=== PATIENT | female | born 1945 | race Caucasian/White ===

== ENCOUNTER 2016-12-06 12:18 | Emergency (ER) | payer OTHER ==
[2016-12-06 12:22] VITALS: BP 116/72; PULSE 64; TEMP 98.3; BMI 30.2
[2016-12-06] MEDS ORDERED: IBUPROFEN 600 MG TABLET (FP) PO ONE ×2 (13:37→13:40)
--- NOTE | 2016-12-06 15:00 | PDOC ---
History of Present Illness - General Chief Complaint: Injury Stated Complaint: FALL/ LEG INJIURY Time Seen by Provider: 12/06/16 13:27 History Source: Patient Exam Limitations: No Limitations - History of Present Illness Initial Comments: 12/06/16 14:52 BIB son who is translating; mom was standing on cabinet today fell as stepped on step ladder and fell ~ 2 ft Occurred: reports: this morning Severity: reports: mild Pain Location: reports: lower extremity Method of Injury: Yes: fall Past History - Past Medical History Allergies/Adverse Reactions: Allergies Allergy/AdvReac Type Severity Reaction Status Date / Time No Known Allergies Allergy Verified 12/06/16 12:20 Home Medications: Ambulatory Orders Unobtainable Home Med List 0 dose .ROUTE UTDICT 11/21/13 Diabetes: Yes HTN: Yes - Surgical History Abdominal Surgery: Yes Cholecystectomy: Yes - Psycho/Social/Smoking Cessation Hx Anxiety: No Suicidal Ideation: No Smoking History: Never smoked Hx Alcohol Use: No Drug/Substance Use Hx: No Substance Use Type: None Review of Systems - Review of Systems Constitutional: No: Chills, Fever, Malaise Respiratory: No: Symptoms reported, Cough Cardiac (ROS): Yes: Symptoms Reported Musculoskeletal: Yes: Other (tender mid shaft tib-fib; also tender dital MTs right foot;) Integumentary: Yes: Other (no skin break) *Physical Exam - Vital Signs Last Vital Signs Temp Pulse Resp BP Pulse Ox 98.3 F 64 18 116/72 98 12/06/16 12:19 12/06/16 12:19 12/06/16 12:19 12/06/16 12:19 12/06/16 12:19 - Physical Exam General Appearance: Yes: Appropriately Dressed. No: Apparent Distress HEENT: positive: Pharynx Normal Respiratory/Chest: positive: Lungs Clear Musculoskeletal: positive: Other (tender mid shaft tibia, fibula; no tenderness to ankle; tender to area of distal MTs 2-5) Integumentary: positive: Normal Color, Dry, Warm, Other (skin intact) Neurologic: positive: Fully Oriented, Alert ED Treatment Course - RADIOLOGY Radiology Studies Ordered: Category Date Time Status ANKLE & FOOT-RIGHT* [RAD] Stat Radiology 12/06/16 13:38 Completed LEG TIB/FIB-RIGHT [RAD] Stat Radiology 04/29/17 14:02 Completed - Medications Given in the ED: ED Medications Discontinued Medications Generic Name Dose Route Start Last Admin Trade Name Diana PRN Reason Stop Dose Admin Ibuprofen 600 mg 12/06/16 13:37 12/06/16 13:43 Motrin - PO 12/06/16 13:38 600 mg ONCE ONE Administration Medical Decision Making - Medical Decision Making 12/06/16 14:57 spoke with TRACEY Dorado covering [facility]/ [place] service, suggests non weight bearing splint and pt will need surgery by podiatry next week; pt good on non weight bearing with crutches; has own podiatry; anand dressing appied *DC/Admit/Observation/Transfer Diagnosis at time of Disposition: Fracture of right foot Qualifiers: Encounter type: initial encounter Fracture type: closed Qualified Code(s): S92.901A - Unspecified fracture of right foot, initial encounter for closed fracture - Discharge Dispostion Disposition: HOME Condition at time of disposition: Stable Admit: No - Referrals Referrals: Malu Hobbs MD [Primary Care Provider] - Darrick Hilario MD [Staff Physician] - - Patient Instructions Additional Instructions: please no weight bearing; ice area; elevate foot; see foot MD on Thursday, you may need surgery this week
== END 2016-12-06 15:05 | disposition home or self-care (01) ==
LOC: SUPCPDRO 12:18 → JERFT 12:18
PROC: 2W3LX1Z Immobilization of Right Lower Extremity using Splint (ICD-10-PCS; principal; 2016-12-06)
DX: S92.901A Unspecified fracture of right foot, initial encounter for closed fracture (principal); W11.XXXA Fall on and from ladder, initial encounter; W17.89XA Other fall from one level to another, initial encounter; Y93.89 Activity, other specified; Y92.038 Other place in apartment as the place of occurrence of the external cause; I10 Essential (primary) hypertension; E11.9 Type 2 diabetes mellitus without complications
CPT/HCPCS: 29515; 73590-TC-RT; 73610-TC-RT; 73630-TC-RT; 99282-25

== ENCOUNTER 2019-09-23 05:07 | Day surgery (SDC) | payer OTHER ==
[2019-09-22 15:34] VITALS: BMI 27.4
[2019-09-23] MEDS ORDERED: PROPOFOL 20 ML ONE ×2 (08:42→11:23)
[2019-09-23] MEDS ORDERED: LIDOCAINE HCL/PF 2% SDV 5ML VIAL ONE ×2 (08:42→11:23)
[2019-09-23] MEDS ORDERED: MIDAZOLAM HCL 2 MG/2 ML SINGLE DOSE VIAL ONE (08:42)
[2019-09-23] MEDS ORDERED: DEXAMETHASONE SOD PHOSPHATE 4 MG/1 ML VIAL ONE (11:23)
[2019-09-23] MEDS ORDERED: ISOSULFAN BLUE 10 MG/ML VIAL SQ ONE (11:30)
[2019-09-23] MEDS ORDERED: LIDOCAINE HCL 1%, 10 MG/ML (20ML VIAL) ONE (11:30)
[2019-09-23] MEDS ORDERED: ceFAZolin 2 GRAM PREMIX BAG IVPB ONE (12:16)
[2019-09-23] MEDS ORDERED: KETOROLAC TROMETHAMINE 30 MG/1 ML VIAL ONE (12:18)
[2019-09-23] MEDS ORDERED: LIDOCAINE HCL 1%, 10 MG/ML (20ML VIAL) NR ONE ×2 (12:28)
[2019-09-23] MEDS ORDERED: EPHEDRINE SULFATE/0.9% NACL/PF 50 MG/10 ML SYRINGE NR ONE (12:40)
[2019-09-23] MEDS ORDERED: BACITRACIN 15 GM TUBE TOPICAL OINTMENT ONE (13:32)
--- NOTE | 2019-09-23 15:29 | OP ---
DATE OF OPERATION: 09/23/2019 PREOPERATIVE DIAGNOSIS: Left breast cancer. POSTOPERATIVE DIAGNOSIS: Left breast cancer. PROCEDURE: Left breast ultrasound-guided lumpectomy and sentinel node biopsy. SURGEON: Marian Mariano MD ANESTHESIA: General. ESTIMATED BLOOD LOSS: Minimal. COMPLICATIONS: None. This was a sterile procedure. INDICATION FOR PROCEDURE: Patient presented with a screening mammogram and ultrasound that noted a density in the outer left breast. A needle biopsy showed invasive carcinoma. My recommendation was lumpectomy and sentinel node biopsy. The procedure was discussed with all of the questions answered. PROCEDURE IN DETAIL: Patient was brought to [facility] in [place] and [facility] nuclear medicine where I injected technetium labelled sulfur colloid as an intradermal injection in the left 3 o'clock areolar border. She was then brought up to the operating room, and after induction of general anesthesia and IV antibiotics, the left breast and axilla were prepped; 5 mL of Isosulfan Blue dye was injected by me into the left subaerolar plexus, and the breast was massaged for 5 minutes. She was induced with general anesthesia and intraoperative ultrasound performed to localize the lesion in the left breast 3 o'clock location 3 cm from the nipple. Then using usual sterile technique, the outer left breast and the axillary area were anesthetized with 1% lidocaine without epinephrine. The 4-cm incision was made in the left axilla, carried down to the clavipectoral fascia to identify a 1st sentinel node that was hot and blue. There was another lymph node as well that was hot but not blue. There was no other blue dye radioactivity or pathologic feeling lymph nodes in the left axilla; therefore, once hemostasis was assured, the left lumpectomy was performed. A radial incision was made in the left breast 3:30-4 o'clock location, and the area marked out by the ultrasound was excised en bloc, tagged with a long stitch lateral, short stitch superior. Grossly, I felt I was close posteriorly; therefore, I took a new posterior margin with a stitch at the old margin. The lumpectomy was sent for a permanent section as a left breast lumpectomy, long stitch lateral, short stitch superior, and the new posterior margin was also sent for permanent section in formalin to Pathology with stitch marking the old margin. Hemostasis was assured with electrocautery. The parenchyma was approximated with interrupted 2-0 Vicryl, skin approximated with interrupted 3-0 Vicryl, running 4 -0 Prolene. The axillary incision was also closed in a routine fashion with interrupted 3-0 Vicryl, running 4-0 Prolene. A sterile dressing with Tegaderm and 4 x 4 was applied. She tolerated procedure well, was extubated on the operating room table, taken to recovery in good condition. Kenny [id number] MTDD
[2019-09-23 16:16] VITALS: BP 136/80; PULSE 100; TEMP 95
--- NOTE | 2019-09-28 16:15 | PATH ---
Surgical Pathology Report Patient Name: YAJAIRA RIDLEY [facility]. Rec. #: [id number] /Age/Gender: 1945 (Age: 73) / F Account: [id number] Location: [facility] SURGICAL Taken: 09/23/2019 Received: 09/26/2019 Reported: 09/28/2019 Physicians: Marian Mariano M.D. Specimen(s) Received A: LEFT AXILLARY SENTINEL LYMPH NODE #1 (HOT AND BLUE) B: LEFT AXILLARY SENTINEL LYMPH NODE #2 (HOT NOT BLUE) C: LEFT LUMPECTOMY D: LEFT BREAST NEW POSTERIOR MARGIN Clinical History Left breast cancer Final Diagnosis A. lymph node, left axillary sentinel #1, excision: One lymph node, negative for metastatic carcinoma (0/1). B. lymph node, left axillary sentinel #2, excision: One lymph node, negative for metastatic carcinoma (0/1). C. breast, left, lumpectomy: Invasive ductal carcinoma, moderately differentiated (tubule score: 3/3, nuclear grade: 2/3, mitotic score: 2/3, total score: 7/9; [place], grade 2). See note. Invasive carcinoma measures 1.2 cm in greatest dimension, microscopically. Focal ductal carcinoma in situ (DCIS), Cribriform type, intermediate nuclear grade. Surgical margins are uninvolved by carcinoma; invasive carcinoma is at 3 mm from the closest posterior margin and DCIS is at 2 mm from the closest posterior margin. (see specimen D for final posterior margin). No lymphovascular invasion is identified. Pathologic stage (pTNM): pT1c pN0. see also invasive carcinoma case Summary below. Note: The carcinoma demonstrates strong membranous positivity for E-cadherin and p120 catenin (performed at [place], [place]: [id number]) which supports ductal phenotype. D. breast, left, new posterior margin, excision: Benign breast tissue. Comments Breast Invasive Carcinoma: Surgical Pathology Case Summary (Based on AJCC TNM 8 th edition) Procedure _X_ Excision (less than total mastectomy) Specimen Laterality _X_ Left Tumor Size _X_ Greatest dimension of largest invasive focus >1 mm (millimeters): 12 mm Histologic Type _X_ Invasive carcinoma of no special type (ductal, not otherwise specified) Histologic Grade (Geovanna Histologic Score) Glandular (Acinar)/Tubular Differentiation _X_ Score 3 (<10% of tumor area forming glandular/tubular structures) Nuclear Pleomorphism _X_ Score 2 Mitotic Rate _X_ Score 2 Overall Grade _X_ Grade 2 (scores of 6 or 7) Tumor Focality _X_ Single focus of invasive carcinoma Ductal Carcinoma In Situ (DCIS) _X_ DCIS is present in specimen _X_ Negative for extensive intraductal component (EIC) Margins Invasive Carcinoma Margins _X_ Uninvolved by invasive carcinoma Distance from closest margin (millimeters): 3 mm Closest margin: posterior (Final posterior margin D is negative for carcinoma) DCIS Margins _X_ Uninvolved by DCIS Distance from closest margin (millimeters): 2 mm Closest margin: posterior (Final posterior margin D is negative for DCIS) Regional Lymph Nodes _X_ Uninvolved by tumor cells Number of Lymph Nodes Examined: 2 Number of [place] Nodes Examined:2 Treatment Effect _X_ No known presurgical therapy Lymphovascular Invasion _X_ Not identified Pathologic Stage Classification (pTNM, AJCC 8th Edition) Primary Tumor (Invasive Carcinoma) (pT) _X_ pT1c: Tumor >10 mm but =20 mm in greatest dimension Category (pN) _X_ pN0: No regional lymph node metastasis identified or ITCs only Biomarker Studies Results of ER, KS, Her2 (IHC) & Ki-67 studies performed on this specimen (block C1) at [place], [place] ([id number] ) are as follows: ER (clone [id number] mouse monoclonal antibody by [employer]): 100 % nuclear staining with strong intensity (positive). KS (clone16 mouse monoclonal antibody by [employer]): ~25 % nuclear staining with moderate to strong intensity (positive). Her2 IHC (EP3 from [employer], formerly known as [id number], using Santiago Polymer Refine detection kit): 2+ (Equivocal). Ki67: ~20% (Intermediate proliferative index). Results of Her2 FISH studies will be reported separately in an addendum. Positive and negative controls (internal if applicable) show appropriate results. Formalin fixation time is within current ASCO/CAP recommendations for ER, KS and Her2 testing. Time to formalin fixation (cold ischemic time) is not given. Electronically Signed Miryam Zelaya M.D. Amendments Amended: 09/28/2019 Previous Signout Date: 09/28/2019 Addendum Reported: 10/05/2019 Addendum Diagnosis Results of Her2 FISH studies performed on block "C1 " at [place], [place] ([id number]) are as follows: Her2: 17.0 CEP17:1.6 Ratio:10.6 Interpretation: POSITIVE See [facility] report for additional details. Miryam Zelaya M.D. Gross Description A. Received in formalin labeled "left axillary sentinel lymph node #1," is a 1.3 x 0.7 x 0.4 cm lymph node with attached fat. The specimen is bisected and entirely submitted in one cassette. B. Received in formalin labeled "left axillary sentinel lymph node #2," is a 1.5 x 0.8 x 0.3 cm lymph node with attached fat. The specimen is submitted in toto in one cassette. C. Received in formalin, labeled "left lumpectomy," is a 6.3 x 5.9 x 3.2 cm. barber-yellow, irregular, portion of fibroadipose tissue. There is no needle localization wire present. There is a short suture marking the superior aspect and a long suture marking the lateral aspect, per the surgeon. There is no skin present. The specimen is inked as follows: superior and lateral blue; inferior green; medial yellow; anterior red; posterior black. The specimen is serially sectioned from medial to lateral. Sectioning reveals a 1.0 x 0.9 x 0.8 cm barber, indurated mass at 0.2 cm from the posterior margin and 0.9 cm from the inferior margin. The remaining margins appear widely clear of the mass. Pipe Cleaner sections are submitted in 6 cassettes as follows: 1-full-face section of mass with anterior and posterior margins; 2-additional mass with posterior and inferior margins; 3-additional mass with posterior margin; 4-superior margin; 5-medial margin; 6-lateral margin. Time to formalin fixation: Not given Total formalin fixation time: Approximately 72 hours D. Received in formalin labeled "left breast new posterior margin," is a 5.0 x 3.8 x 1.5 cm portion of fibroadipose tissue with a suture marking the old margin, per the surgeon. The new margin is inked black and the specimen is serially sectioned. The specimen is entirely and sequentially submitted in 9 cassettes. DL09/26/2019 saudi09/26/2019
== END 2019-09-23 16:17 | disposition home or self-care (01) ==
LOC: JASU-SURG 05:07
PROVIDERS: ATTEND Surgery
PROC: 0HBU0ZZ Excision of Left Breast, Open Approach (ICD-10-PCS; principal; 2019-09-23 11:00)
DX: C50.912 Malignant neoplasm of unspecified site of left female breast (principal); E11.9 Type 2 diabetes mellitus without complications; I10 Essential (primary) hypertension
CPT/HCPCS: 78195-TC; 82962; 88307-TC; 94760; A9541

== ENCOUNTER 2019-10-19 08:58 | Day surgery (SDC) | payer OTHER ==
[2019-10-18 12:39] VITALS: BMI 28.7
[2019-10-19 09:53] LABS: INR 0.96 (0.83-1.09); PROTHROMBIN TIME (PATIENT) 11.3 SEC (9.7-13.0)
[2019-10-19 10:14] LABS: BASO % 0.6 % (0-2.0); EOS % 3.1 % (0-4.5); HEMATOCRIT 33.7 % (32.4-45.2); HEMOGLOBIN 11.3 GM/dL (10.7-15.3); LYMPH % 19.5 % (8-40); MCH 29.4 pg (25.7-33.7); MCHC 33.5 g/dl (32.0-36.0); MEAN CELL VOLUME 87.8 fl (80-96); MONO % 9.6 % (3.8-10.2); NEUT % 67.2 % (42.8-82.8); PLATELET COUNT 269 K/MM3 (134-434); RBC 3.84 M/mm3 (3.60-5.2); WHITE BLOOD COUNT 7.9 K/mm3 (4.0-10.0)
[2019-10-19 14:49] VITALS: BP 129/64; PULSE 86; TEMP 97.5
== END 2019-10-19 14:40 | disposition home or self-care (01) ==
LOC: JRADIR 08:58
PROVIDERS: ATTEND Internal Medicine Hematology & Oncology
PROC: 02HV33Z Insertion of Infusion Device into Superior Vena Cava, Percutaneous Approach (ICD-10-PCS; principal; 2019-10-19)
PROC: B518ZZA Fluoroscopy of Superior Vena Cava, Guidance (ICD-10-PCS; 2019-10-19)
DX: C50.912 Malignant neoplasm of unspecified site of left female breast (principal)
CPT/HCPCS: 36561; 77001; C1788; 36415; 82962; 85025; 85610

== ENCOUNTER 2019-10-21 05:53 | Day surgery (SDC) | payer OTHER ==
[2019-10-21 13:00] LABS: BASO % 0.5 % (0-2.0); EOS % 2.6 % (0-4.5); HEMATOCRIT 33.7 % (32.4-45.2); HEMOGLOBIN 11.2 GM/dL (10.7-15.3); LYMPH % 17.6 % (8-40); MCH 29.5 pg (25.7-33.7); MCHC 33.2 g/dl (32.0-36.0); MEAN CELL VOLUME 88.9 fl (80-96); MEAN PLT VOLUME 8.2 fl (7.5-11.1); MONO % 7.3 % (3.8-10.2); PLATELET COUNT 254 K/MM3 (134-434); RBC 3.79 M/mm3 (3.60-5.2); RDW 14.3 % (11.6-15.6); WHITE BLOOD COUNT 9.5 K/mm3 (4.0-10.0)
[2019-10-21] MEDS ORDERED: FAMOTIDINE 20 MG/50 ML IVPB 20 MG/50 ML MG IVPB ONE (13:00)
[2019-10-21] MEDS ORDERED: ACETAMINOPHEN 325 MG TABLET (FP) PO ONE (13:00)
[2019-10-21] MEDS ORDERED: DEXAMETHASONE INJECTION 10 MG, DIPHENHYDRAMINE 50 MG in SODIUM CHLORIDE 100 ML IVPB ONE (13:00)
[2019-10-21 13:26] LABS: BILIRUBIN,TOTAL 0.3 mg/dL (0.2-1); CALCIUM 9.5 mg/dL (8.5-10.1); MAGNESIUM 2.2 mg/dL (1.8-2.4); POTASSIUM 4.1 mmol/L (3.5-5.1); TOT PROT 7.3 g/dl (6.4-8.2)
[2019-10-21] MEDS ORDERED: PACLITAXEL 144 MG in SODIUM CHLORIDE 250 ML IVPB ONE (13:30)
[2019-10-21] MEDS ORDERED: SODIUM CHLORIDE IVPB ONE (14:30)
[2019-10-21] MEDS ORDERED: TRASTUZUMAB ANNS IVPB ONE (14:30)
[2019-10-21 18:12] VITALS: BP 139/63; PULSE 82; TEMP 98.3
[2019-10-21] MEDS ORDERED: PORTA CATH FLUSH 10 ML IVPUSH ONE (18:12)
== END 2019-10-21 17:25 | disposition home or self-care (01) ==
LOC: JONCCHEMO 05:53 → J7W 12:30 → JONCCHEMO 17:25
PROVIDERS: ATTEND Internal Medicine Hematology & Oncology
DX: Z51.11 Encounter for antineoplastic chemotherapy (principal); C50.912 Malignant neoplasm of unspecified site of left female breast
CPT/HCPCS: 36415; 80053; 83735; 85025; 96367; 96413; 96417; J1100; Q5117

== ENCOUNTER 2019-10-28 06:27 | Day surgery (SDC) | payer OTHER ==
[2019-10-28] MEDS ORDERED: FAMOTIDINE 20 MG/50 ML IVPB 20 MG/50 ML MG IVPB ONE (09:30)
[2019-10-28] MEDS ORDERED: DEXAMETHASONE SODIUM PHOSPHATE 10 MG, DIPHENHYDRAMINE 50 MG in SODIUM CHLORIDE 100 ML IVPB ONE (09:30)
[2019-10-28] MEDS ORDERED: ACETAMINOPHEN 325 MG TABLET (FP) PO ONE (09:30)
[2019-10-28] MEDS ORDERED: SODIUM CHLORIDE IVPB ONE (10:00)
[2019-10-28] MEDS ORDERED: TRASTUZUMAB ANNS IVPB ONE (10:00)
[2019-10-28] MEDS ORDERED: PACLITAXEL 144 MG in SODIUM CHLORIDE 250 ML IVPB ONE (10:30)
[2019-10-28] MEDS ORDERED: HYDROCORTISONE 1% TOPICAL CREAM 30 GM TUBE TP PRN (13:23)
[2019-10-28 13:58] LABS: BASO % 0.9 % (0-2.0); EOS % 6.6 % (0-4.5); HEMATOCRIT 31.7 % (32.4-45.2); HEMOGLOBIN 10.8 GM/dL (10.7-15.3); LYMPH % 19.4 % (8-40); MCH 29.6 pg (25.7-33.7); MEAN PLT VOLUME 8.2 fl (7.5-11.1); MONO % 5.2 % (3.8-10.2); NEUT % 67.9 % (42.8-82.8); PLATELET COUNT 299 K/MM3 (134-434); RBC 3.64 M/mm3 (3.60-5.2); RDW 13.6 % (11.6-15.6); WHITE BLOOD COUNT 7.1 K/mm3 (4.0-10.0)
[2019-10-28 14:25] LABS: ALBUMIN 3.8 g/dl (3.4-5.0); BILIRUBIN,TOTAL 0.5 mg/dL (0.2-1); BLOOD UREA NITROGEN 15.9 mg/dL (7-18); CALCIUM 9.7 mg/dL (8.5-10.1); CREATININE 0.9 mg/dL (0.55-1.3); POTASSIUM 3.9 mmol/L (3.5-5.1); TOT PROT 7.2 g/dl (6.4-8.2)
[2019-10-28] MEDS ORDERED: ACETAMINOPHEN 325 MG TABLET (FP) ONE (14:33)
[2019-10-28 17:27] VITALS: BP 130/62; PULSE 73; TEMP 97.7
[2019-10-28] MEDS ORDERED: PORTA CATH FLUSH 10 ML IVPUSH ONE (17:27)
== END 2019-10-28 17:29 | disposition home or self-care (01) ==
LOC: JONCCHEMO 06:27 → J7W 13:40 → JONCCHEMO 17:29
PROVIDERS: ATTEND Nurse Practitioner Family
DX: Z51.11 Encounter for antineoplastic chemotherapy (principal); C50.912 Malignant neoplasm of unspecified site of left female breast
CPT/HCPCS: 36415; 80053; 85025; 96367; 96375; 96413; 96417; Q5117

== ENCOUNTER 2020-02-02 06:28 | Day surgery (SDC) | payer OTHER ==
[2020-02-02] MEDS ORDERED: ACETAMINOPHEN 325 MG TABLET (FP) PO ONE (10:00)
[2020-02-02] MEDS ORDERED: DIPHENHYDRAMINE 25 MG in SODIUM CHLORIDE 50 ML IVPB ONE (10:00)
[2020-02-02] MEDS ORDERED: TRASTUZUMAB-ANNS 440 MG in SODIUM CHLORIDE 250 ML IVPB ONE (10:30)
[2020-02-02 12:06] LABS: BASO % 0.7 % (0-2.0); EOS % 1.3 % (0-4.5); HEMATOCRIT 32.2 % (32.4-45.2); HEMOGLOBIN 10.8 GM/dL (10.7-15.3); LYMPH % 14.4 % (8-40); MCH 31.7 pg (25.7-33.7); MCHC 33.7 g/dl (32.0-36.0); MEAN CELL VOLUME 94.1 fl (80-96); MEAN PLT VOLUME 8.3 fl (7.5-11.1); MONO % 7.5 % (3.8-10.2); NEUT % 76.1 % (42.8-82.8); PLATELET COUNT 286 K/MM3 (134-434); RBC 3.43 M/mm3 (3.60-5.2); RDW 17.3 % (11.6-15.6); WHITE BLOOD COUNT 9.1 K/mm3 (4.0-10.0)
[2020-02-02 12:13] LABS: ALBUMIN 4.1 g/dl (3.4-5.0); BILIRUBIN,TOTAL 0.7 mg/dL (0.2-1); BLOOD UREA NITROGEN 16.5 mg/dL (7-18); CALCIUM 10.1 mg/dL (8.5-10.1); POTASSIUM 3.5 mmol/L (3.5-5.1)
[2020-02-02 12:20] LABS: CREATININE 0.9 mg/dL (0.55-1.3)
[2020-02-02 15:13] VITALS: TEMP 98.7
[2020-02-02 15:16] VITALS: BP 139/73; PULSE 89
== END 2020-02-02 14:10 | disposition home or self-care (01) ==
LOC: JONCCHEMO 06:28
PROVIDERS: ATTEND Internal Medicine Hematology & Oncology
DX: Z51.11 Encounter for antineoplastic chemotherapy (principal); C50.912 Malignant neoplasm of unspecified site of left female breast; D64.81 Anemia due to antineoplastic chemotherapy
CPT/HCPCS: 36415; 80053; 85025; 96375; 96413

== ENCOUNTER 2020-02-24 07:15 | Day surgery (SDC) | payer OTHER ==
[2020-02-24] MEDS ORDERED: DIPHENHYDRAMINE 25 MG in SODIUM CHLORIDE 50 ML IVPB ONE (10:00)
[2020-02-24] MEDS ORDERED: ACETAMINOPHEN 325 MG TABLET (FP) PO ONE (10:00)
[2020-02-24] MEDS ORDERED: TRASTUZUMAB-ANNS 440 MG in SODIUM CHLORIDE 250 ML IVPB ONE (10:30)
[2020-02-24 11:03] LABS: BASO % 0.5 % (0-2.0); EOS % 1.1 % (0-4.5); HEMATOCRIT 34.9 % (32.4-45.2); HEMOGLOBIN 11.9 GM/dL (10.7-15.3); MCH 31.3 pg (25.7-33.7); MEAN CELL VOLUME 92.1 fl (80-96); MEAN PLT VOLUME 7.3 fl (7.5-11.1); MONO % 6.6 % (3.8-10.2); NEUT % 79.8 % (42.8-82.8); PLATELET COUNT 289 K/MM3 (134-434); RBC 3.79 M/mm3 (3.60-5.2); RDW 14.5 % (11.6-15.6); WHITE BLOOD COUNT 10.7 K/mm3 (4.0-10.0)
[2020-02-24 11:32] LABS: ALBUMIN 4.2 g/dl (3.4-5.0); BILIRUBIN,TOTAL 0.7 mg/dL (0.2-1); BLOOD UREA NITROGEN 15.1 mg/dL (7-18); CALCIUM 10.3 mg/dL (8.5-10.1); POTASSIUM 3.7 mmol/L (3.5-5.1); TOT PROT 7.6 g/dl (6.4-8.2)
[2020-02-24 14:46] VITALS: TEMP 98.2
[2020-02-24 14:48] VITALS: BP 126/72; PULSE 67
== END 2020-02-24 13:15 | disposition home or self-care (01) ==
LOC: JONCCHEMO 07:15
PROVIDERS: ATTEND Internal Medicine Hematology & Oncology
DX: Z51.11 Encounter for antineoplastic chemotherapy (principal); C50.912 Malignant neoplasm of unspecified site of left female breast; D64.81 Anemia due to antineoplastic chemotherapy
CPT/HCPCS: 36415; 80053; 82728; 83540; 83550; 85025; 96375; 96413; Q5117

== ENCOUNTER 2020-03-16 07:21 | Day surgery (SDC) | payer OTHER ==
[2020-03-16] MEDS ORDERED: DIPHENHYDRAMINE 25 MG in SODIUM CHLORIDE 50 ML IVPB ONE (10:00)
[2020-03-16] MEDS ORDERED: ACETAMINOPHEN 325 MG TABLET (FP) PO ONE (10:00)
[2020-03-16] MEDS ORDERED: TRASTUZUMAB-ANNS 440 MG in SODIUM CHLORIDE 250 ML IVPB ONE (10:30)
[2020-03-16 12:56] LABS: BASO % 0.6 % (0-2.0); EOS % 1.5 % (0-4.5); HEMATOCRIT 35.7 % (32.4-45.2); LYMPH % 10.5 % (8-40); MCHC 33.6 g/dl (32.0-36.0); MEAN CELL VOLUME 92.1 fl (80-96); MEAN PLT VOLUME 7.3 fl (7.5-11.1); MONO % 5.5 % (3.8-10.2); NEUT % 81.9 % (42.8-82.8); PLATELET COUNT 285 K/MM3 (134-434); RBC 3.87 M/mm3 (3.60-5.2); RDW 13.4 % (11.6-15.6); WHITE BLOOD COUNT 10.3 K/mm3 (4.0-10.0)
[2020-03-16 13:24] LABS: ALBUMIN 4.1 g/dl (3.4-5.0); BILIRUBIN,TOTAL 0.4 mg/dL (0.2-1); BLOOD UREA NITROGEN 12.2 mg/dL (7-18); CALCIUM 10.3 mg/dL (8.5-10.1); CREATININE 0.9 mg/dL (0.55-1.3); POTASSIUM 4.1 mmol/L (3.5-5.1); TOT PROT 7.2 g/dl (6.4-8.2)
[2020-03-16 14:26] VITALS: TEMP 98.3
[2020-03-16 15:41] VITALS: BP 146/69; PULSE 69
[2020-03-16] MEDS ORDERED: PORTA CATH FLUSH 10 ML IVPUSH ONE (15:41)
== END 2020-03-16 15:00 | disposition home or self-care (01) ==
LOC: JONCCHEMO 07:21
PROVIDERS: ATTEND Internal Medicine Hematology & Oncology
PROC: 3E04305 Introduction of Other Antineoplastic into Central Vein, Percutaneous Approach (ICD-10-PCS; principal; 2020-03-16)
PROC: 3E043GC Introduction of Other Therapeutic Substance into Central Vein, Percutaneous Approach (ICD-10-PCS; 2020-03-16)
DX: Z51.11 Encounter for antineoplastic chemotherapy (principal); C50.912 Malignant neoplasm of unspecified site of left female breast; I10 Essential (primary) hypertension; E11.9 Type 2 diabetes mellitus without complications; E03.9 Hypothyroidism, unspecified; J45.909 Unspecified asthma, uncomplicated
CPT/HCPCS: 36415; 80053; 82728; 83540; 83550; 85025; 96375; 96413

== ENCOUNTER 2020-04-06 07:10 | Day surgery (SDC) | payer OTHER ==
[2020-04-06] MEDS ORDERED: DIPHENHYDRAMINE 25 MG in SODIUM CHLORIDE 50 ML IVPB ONE (10:00)
[2020-04-06] MEDS ORDERED: ACETAMINOPHEN 325 MG TABLET (FP) PO ONE (10:00)
[2020-04-06] MEDS ORDERED: TRASTUZUMAB-ANNS 440 MG in SODIUM CHLORIDE 250 ML IVPB ONE (10:30)
[2020-04-06 11:00] LABS: BASO % 0.8 % (0-2.0); EOS % 3.1 % (0-4.5); HEMATOCRIT 35.4 % (32.4-45.2); HEMOGLOBIN 11.9 GM/dL (10.7-15.3); LYMPH % 13.6 % (8-40); MCH 30.7 pg (25.7-33.7); MCHC 33.7 g/dl (32.0-36.0); MEAN PLT VOLUME 7.3 fl (7.5-11.1); MONO % 8.1 % (3.8-10.2); NEUT % 74.4 % (42.8-82.8); PLATELET COUNT 269 K/MM3 (134-434); RBC 3.89 M/mm3 (3.60-5.2); RDW 13.2 % (11.6-15.6); WHITE BLOOD COUNT 7.6 K/mm3 (4.0-10.0)
[2020-04-06 12:12] LABS: ALBUMIN 3.8 g/dl (3.4-5.0); BILIRUBIN,TOTAL 0.5 mg/dL (0.2-1); BLOOD UREA NITROGEN 14.4 mg/dL (7-18); CALCIUM 9.4 mg/dL (8.5-10.1); MAGNESIUM 1.7 mg/dL (1.8-2.4); POTASSIUM 3.5 mmol/L (3.5-5.1)
[2020-04-06] MEDS ORDERED: MAGNESIUM SULF 50% (8.12 MEQ/2 ML-1 GM VIAL) IVPB ONE (12:29)
[2020-04-06] MEDS ORDERED: MAGNESIUM SULFATE IN WATER 2 GM/50 ML IVPB IVPB ONE (13:15)
[2020-04-06 15:10] VITALS: BP 122/55; PULSE 67; TEMP 98.1
== END 2020-04-06 15:12 | disposition home or self-care (01) ==
LOC: JONCCHEMO 07:10
PROVIDERS: ATTEND Internal Medicine Hematology & Oncology
DX: Z51.11 Encounter for antineoplastic chemotherapy (principal); C50.912 Malignant neoplasm of unspecified site of left female breast; E11.9 Type 2 diabetes mellitus without complications; I10 Essential (primary) hypertension; E03.9 Hypothyroidism, unspecified; J45.909 Unspecified asthma, uncomplicated
CPT/HCPCS: 36415; 80053; 82607; 82728; 82747; 83540; 83550; 83735; 85014; 85025; 96367; 96375; 96413

== ENCOUNTER 2020-04-27 07:14 | Day surgery (SDC) | payer OTHER ==
[2020-04-27] MEDS ORDERED: ACETAMINOPHEN 325 MG TABLET (FP) PO ONE (10:00)
[2020-04-27] MEDS ORDERED: DIPHENHYDRAMINE 25 MG in SODIUM CHLORIDE 50 ML IVPB ONE (10:00)
[2020-04-27] MEDS ORDERED: TRASTUZUMAB-ANNS 440 MG in SODIUM CHLORIDE 250 ML IVPB ONE (10:30)
[2020-04-27 12:06] LABS: BASO % 0.7 % (0-2.0); HEMATOCRIT 34.4 % (32.4-45.2); HEMOGLOBIN 12.1 GM/dL (10.7-15.3); LYMPH % 14.1 % (8-40); MCH 31.5 pg (25.7-33.7); MEAN PLT VOLUME 7.6 fl (7.5-11.1); MONO % 9.3 % (3.8-10.2); NEUT % 73.9 % (42.8-82.8); PLATELET COUNT 243 K/MM3 (134-434); RBC 3.83 M/mm3 (3.60-5.2); RDW 12.7 % (11.6-15.6); WHITE BLOOD COUNT 8.6 K/mm3 (4.0-10.0)
[2020-04-27 12:31] LABS: ALBUMIN 3.8 g/dl (3.4-5.0); BILIRUBIN,TOTAL 0.5 mg/dL (0.2-1); BLOOD UREA NITROGEN 14.5 mg/dL (7-18); CALCIUM 9.6 mg/dL (8.5-10.1); MAGNESIUM 1.9 mg/dL (1.8-2.4); TOT PROT 6.8 g/dl (6.4-8.2)
[2020-04-27 16:16] VITALS: BP 130/62; PULSE 58; TEMP 97.6
[2020-04-27] MEDS ORDERED: PORTA CATH FLUSH 10 ML IVPUSH ONE (16:16)
== END 2020-04-27 14:40 | disposition home or self-care (01) ==
LOC: JONCCHEMO 07:14
PROVIDERS: ATTEND Internal Medicine Hematology & Oncology
DX: Z51.11 Encounter for antineoplastic chemotherapy (principal); C50.912 Malignant neoplasm of unspecified site of left female breast; E11.9 Type 2 diabetes mellitus without complications; I10 Essential (primary) hypertension; E03.9 Hypothyroidism, unspecified; J45.909 Unspecified asthma, uncomplicated
CPT/HCPCS: 36415; 80053; 83735; 85025; 96375; 96413; Q5117

== ENCOUNTER 2020-05-18 06:18 | Day surgery (SDC) | payer OTHER ==
--- OUTSIDE RECORDS SUMMARY | 2020-05-18 06:29 | XMS ---
:1945 Author Organization [facility] Care Team Providers Name Role Phone [facility], MHAW9 Unavailable Unavailable Innabi, Toribio Unavailable Unavailable Innabi, Toribio Unavailable Unavailable Innabi, Toribio Unavailable Unavailable Innabi, Toribio Unavailable Unavailable Innabi, Toribio Unavailable Unavailable Innabi, Toribio Unavailable Unavailable Innabi, Toribio Unavailable Unavailable Innabi, Toribio Unavailable Unavailable Innabi, Toribio Unavailable Unavailable Innabi, Toribio Unavailable Unavailable Innabi, Toribio Unavailable Unavailable Innabi, Toribio Unavailable Unavailable Innabi, Toribio Unavailable Unavailable Innabi, Toribio Unavailable Unavailable Innabi, Toribio Unavailable Unavailable Innabi, Toribio Unavailable Unavailable Re-disclosure Warning The records that you are about to access may contain information from federally- assisted alcohol or drug abuse programs. If such information is present, then the following federally mandated warning applies: This information has been disclosed to you from records protected by federal confidentiality rules (42 CFR part 2). The federal rules prohibit you from making any further disclosure of this information unless further disclosure is expressly permitted by the written consent of the person to whom it pertains or as otherwise permitted by 42 CFR part 2. A general authorization for the release of medical or other information is NOT sufficient for this purpose. The Federal rules restrict any use of the information to criminally investigate or prosecute any alcohol or drug abuse patient.The records that you are about to access may contain highly sensitive health information, the redisclosure of which is protected by Article 27-F of the [place] State Public Health law. If you continue you may haveaccess to information: Regarding HIV / AIDS; Provided by facilities licensed or operated by the [facility] Office of Mental Health; or Provided by the [facility] Office for People With Developmental Disabilities. If such information is present, then the following [facility] mandated warning applies: This information has been disclosed to you from confidential records which are protected by state law. State law prohibits you from making any further disclosure of this information without the specific written consent of the person to whom it pertains, or as otherwise permitted by law. Any unauthorized further disclosure in violation of state law may result in a fine or retirement sentence or both. A general authorization for the release of medical or other information is NOT sufficient authorization for further disclosure. Encounters Encounter Providers Location Date Indications Data Source(s ) Outpatient Attender: [id number] 09/27/2019 I ([facility] 01:06:39 PM Reymundo sanchez) EST Patient admitted. Outpatient Attender: Malu Marmolejo 07/21/2019 12:52:00 PM [facility] Kaushik FabyAdmitter: Malu EST [facility] InnabiReferrer: Malu Hobbs Outpatient Attender: Malu Marmolejo 06/03/2019 10:37:00 AM [facility] Kaushik FabyAdmitter: [facility]: Malu Hobbs Insurance Providers Payer name Policy type Policy ID Covered Covered green party's Policy P lour[place] / Coverage green party ID relationship to Jose Inf ormation type jose MEDICAID [id number] SP [id number] [employer] [id number] SP [id number] MEDICARE W [id number] 01 [id number] [employer] O [id number] 01 [id number] W [id number] [employer] O [id number] Problems, Conditions, and Diagnoses Code Display Name Description Problem Type Effective Dates Data Source(s) R92.2 Inconclusive INCONCLUSIVE Diagnosis 07/21/2019 [facility] mammogram MAMMOGRAM 12:52:00 PM EST Medical C enter Z12.31 Encounter for ENCNTR SCREEN Diagnosis 06/03[facility]2019 [facility] screening MAM[facility] FOR 10:37:00 AM EDT [facility] mammogram for MALIGNANT NEOPLASM malignant neoplasm OF BREAST of breast R05 Cough COUGH Diagnosis 06/03/2019 [facility] 10:37:00 AM EDT Medical C enter Results ID Date Data Source [id number] 02/15/2020 01:35:00 PM EDT [facility] Name Value Range Interpretation Code Description Data Sana rce(s) Supporting Document(s ) COV2 [facility] This lab was ordered by JN gonzalez nd reported by [facility]. Procedure
[2020-05-18 09:39] LABS: BASO % 0.7 % (0-2.0); EOS % 2.5 % (0-4.5); HEMATOCRIT 33.2 % (32.4-45.2); HEMOGLOBIN 11.7 GM/dL (10.7-15.3); LYMPH % 11.5 % (8-40); MCH 31.2 pg (25.7-33.7); MCHC 35.2 g/dl (32.0-36.0); MEAN CELL VOLUME 88.8 fl (80-96); MEAN PLT VOLUME 7.4 fl (7.5-11.1); NEUT % 76.3 % (42.8-82.8); PLATELET COUNT 231 K/MM3 (134-434); RBC 3.73 M/mm3 (3.60-5.2); RDW 13.3 % (11.6-15.6); WHITE BLOOD COUNT 7.4 K/mm3 (4.0-10.0)
[2020-05-18] MEDS ORDERED: DIPHENHYDRAMINE 25 MG in SODIUM CHLORIDE 50 ML IVPB ONE (10:00)
[2020-05-18] MEDS ORDERED: ACETAMINOPHEN 325 MG TABLET (FP) PO ONE (10:00)
[2020-05-18 10:05] LABS: BILIRUBIN,TOTAL 0.6 mg/dL (0.2-1); BLOOD UREA NITROGEN 12.9 mg/dL (7-18); CREATININE 0.9 mg/dL (0.55-1.3); MAGNESIUM 1.6 mg/dL (1.8-2.4); POTASSIUM 3.5 mmol/L (3.5-5.1); TOT PROT 6.9 g/dl (6.4-8.2)
[2020-05-18] MEDS ORDERED: TRASTUZUMAB-ANNS 440 MG in SODIUM CHLORIDE 250 ML IVPB ONE (10:30)
[2020-05-18] MEDS ORDERED: MAGNESIUM SULF 50% (8.12 MEQ/2 ML-1 GM VIAL) IVPB ONE (11:34)
[2020-05-18] MEDS ORDERED: MAGNESIUM SULFATE IN WATER 2 GM/50 ML IVPB IVPB ONE (13:00)
[2020-05-18 15:39] VITALS: TEMP 98
[2020-05-18 15:40] VITALS: BP 130/56; PULSE 62
== END 2020-05-18 14:00 | disposition home or self-care (01) ==
LOC: JONCCHEMO 06:18
PROVIDERS: ATTEND Internal Medicine Hematology & Oncology
DX: Z51.11 Encounter for antineoplastic chemotherapy (principal); C50.912 Malignant neoplasm of unspecified site of left female breast; E11.9 Type 2 diabetes mellitus without complications; I10 Essential (primary) hypertension
CPT/HCPCS: 36415; 80053; 83735; 85025; 96367; 96375; 96413

== ENCOUNTER 2020-06-29 07:05 | Day surgery (SDC) | payer OTHER ==
[2020-06-29] MEDS ORDERED: ACETAMINOPHEN 325 MG TABLET (FP) PO ONE (10:00)
[2020-06-29] MEDS ORDERED: DIPHENHYDRAMINE 25 MG in SODIUM CHLORIDE 50 ML IVPB ONE (10:00)
[2020-06-29] MEDS ORDERED: TRASTUZUMAB-ANNS 440 MG in SODIUM CHLORIDE 250 ML IVPB ONE (11:00)
[2020-06-29 11:49] LABS: BASO % 0.6 % (0-2.0); EOS % 2.7 % (0-4.5); HEMATOCRIT 36.9 % (32.4-45.2); HEMOGLOBIN 12.7 GM/dL (10.7-15.3); MCH 31.2 pg (25.7-33.7); MCHC 34.3 g/dl (32.0-36.0); MEAN PLT VOLUME 8.1 fl (7.5-11.1); MONO % 7.5 % (3.8-10.2); NEUT % 75.2 % (42.8-82.8); PLATELET COUNT 277 K/MM3 (134-434); RBC 4.06 M/mm3 (3.60-5.2); RDW 13.4 % (11.6-15.6); WHITE BLOOD COUNT 8.7 K/mm3 (4.0-10.0)
[2020-06-29 12:10] LABS: CALCIUM 10.2 mg/dL (8.5-10.1)
[2020-06-29 12:12] LABS: ALBUMIN 4.2 g/dl (3.4-5.0); BLOOD UREA NITROGEN 15.8 mg/dL (7-18)
[2020-06-29 12:16] LABS: TOT PROT 7.7 g/dl (6.4-8.2)
[2020-06-29 15:07] VITALS: TEMP 98.1
[2020-06-29] MEDS ORDERED: PORTA CATH FLUSH 10 ML IVPUSH ONE (15:41)
[2020-06-29 15:42] VITALS: BP 136/69; PULSE 65
== END 2020-06-29 14:45 | disposition home or self-care (01) ==
LOC: JONCCHEMO 07:05
PROVIDERS: ATTEND Internal Medicine Hematology & Oncology
DX: Z51.11 Encounter for antineoplastic chemotherapy (principal); C50.912 Malignant neoplasm of unspecified site of left female breast; E11.9 Type 2 diabetes mellitus without complications
CPT/HCPCS: 36415; 80053; 82306; 85025; 96375; 96413; Q5117

== ENCOUNTER 2020-07-20 06:25 | Day surgery (SDC) | payer OTHER ==
[2020-07-20] MEDS ORDERED: DIPHENHYDRAMINE 25 MG in SODIUM CHLORIDE 50 ML IVPB ONE (10:00)
[2020-07-20] MEDS ORDERED: ACETAMINOPHEN 325 MG TABLET (FP) PO ONE (10:00)
[2020-07-20] MEDS ORDERED: TRASTUZUMAB-ANNS 440 MG in SODIUM CHLORIDE 250 ML IVPB ONE ×2 (10:30→12:00)
[2020-07-20 11:08] LABS: BASO % 0.8 % (0-2.0); EOS % 1.7 % (0-4.5); HEMATOCRIT 34.8 % (32.4-45.2); HEMOGLOBIN 11.8 GM/dL (10.7-15.3); LYMPH % 11.3 % (8-40); MCH 31.1 pg (25.7-33.7); MEAN CELL VOLUME 91.3 fl (80-96); MEAN PLT VOLUME 7.6 fl (7.5-11.1); NEUT % 79.2 % (42.8-82.8); PLATELET COUNT 267 K/MM3 (134-434); RBC 3.82 M/mm3 (3.60-5.2); WHITE BLOOD COUNT 8.8 K/mm3 (4.0-10.0)
[2020-07-20 11:22] LABS: POTASSIUM 3.2 mmol/L (3.5-5.1)
[2020-07-20 11:24] LABS: ALBUMIN 3.5 g/dl (3.4-5.0); BLOOD UREA NITROGEN 14.1 mg/dL (7-18); CALCIUM 8.9 mg/dL (8.5-10.1)
[2020-07-20 11:28] LABS: CREATININE 0.8 mg/dL (0.55-1.3)
[2020-07-20 11:29] LABS: BILIRUBIN,TOTAL 0.4 mg/dL (0.2-1); TOT PROT 6.8 g/dl (6.4-8.2)
[2020-07-20] MEDS ORDERED: POTASSIUM CHLORIDE TABS 20 MEQ TABLET.ER (FP) PO ONE (12:00)
[2020-07-20 14:55] VITALS: TEMP 98
[2020-07-20 14:56] VITALS: BP 130/79; PULSE 73
== END 2020-07-20 13:45 | disposition home or self-care (01) ==
LOC: JONCCHEMO 06:25
PROVIDERS: ATTEND Student in an Organized Health Care Education/Training Program
DX: Z51.11 Encounter for antineoplastic chemotherapy (principal); C50.912 Malignant neoplasm of unspecified site of left female breast; E11.9 Type 2 diabetes mellitus without complications
CPT/HCPCS: 36415; 80053; 85025; 96375; 96413; Q5117

== ENCOUNTER 2020-08-17 11:58 | Day surgery (SDC) | payer OTHER ==
[2020-08-17 10:48] LABS: ALBUMIN 4.2 g/dl (3.4-5.0); BLOOD UREA NITROGEN 20.4 mg/dL (7-18); CALCIUM 10.2 mg/dL (8.5-10.1)
[2020-08-17 10:52] LABS: CREATININE 1.1 mg/dL (0.55-1.3)
[2020-08-17 10:53] LABS: BILIRUBIN,TOTAL 0.6 mg/dL (0.2-1); TOT PROT 7.5 g/dl (6.4-8.2)
[2020-08-17 11:06] LABS: BASO % 0.9 % (0-2.0); EOS % 2.5 % (0-4.5); HEMATOCRIT 36.1 % (32.4-45.2); HEMOGLOBIN 12.7 GM/dL (10.7-15.3); MCH 31.6 pg (25.7-33.7); MCHC 35.1 g/dl (32.0-36.0); MEAN CELL VOLUME 90.2 fl (80-96); MEAN PLT VOLUME 7.5 fl (7.5-11.1); MONO % 7.4 % (3.8-10.2); NEUT % 76.2 % (42.8-82.8); PLATELET COUNT 288 K/MM3 (134-434); RBC 4.01 M/mm3 (3.60-5.2); RDW 13.1 % (11.6-15.6); WHITE BLOOD COUNT 8.2 K/mm3 (4.0-10.0)
[~2020-08-17 11:58] MED LIST: ACETAMINOPHEN 325 MG TABLET (FP) PO ONE; DIPHENHYDRAMINE 25 MG in SODIUM CHLORIDE 50 ML IVPB ONE; TRASTUZUMAB-ANNS 440 MG in SODIUM CHLORIDE 250 ML IVPB ONE
[2020-08-17 16:20] VITALS: BP 130/61; PULSE 84; TEMP 98.1
== END 2020-08-17 12:35 | disposition home or self-care (01) ==
LOC: JONCCHEMO 11:58
PROVIDERS: ATTEND Internal Medicine Hematology & Oncology
DX: Z51.11 Encounter for antineoplastic chemotherapy (principal); C50.912 Malignant neoplasm of unspecified site of left female breast
CPT/HCPCS: 36415; 80053; 82306; 85025; 96375; 96413; Q5117

== ENCOUNTER 2020-09-07 08:27 | Day surgery (SDC) | payer OTHER ==
[2020-09-07] MEDS ORDERED: ACETAMINOPHEN 325 MG TABLET (FP) PO ONE (10:00)
[2020-09-07] MEDS ORDERED: DIPHENHYDRAMINE 25 MG in SODIUM CHLORIDE 50 ML IVPB ONE (10:00)
[2020-09-07] MEDS ORDERED: TRASTUZUMAB-ANNS 440 MG in SODIUM CHLORIDE 250 ML IVPB ONE (10:30)
[2020-09-07 11:32] LABS: BASO % 0.8 % (0-2.0); EOS % 1.9 % (0-4.5); HEMATOCRIT 34.7 % (32.4-45.2); LYMPH % 16.5 % (8-40); MCH 31.2 pg (25.7-33.7); MCHC 34.6 g/dl (32.0-36.0); MEAN CELL VOLUME 90.2 fl (80-96); MEAN PLT VOLUME 8.3 fl (7.5-11.1); MONO % 8.5 % (3.8-10.2); NEUT % 72.3 % (42.8-82.8); PLATELET COUNT 271 K/MM3 (134-434); RBC 3.84 M/mm3 (3.60-5.2); RDW 13.1 % (11.6-15.6); WHITE BLOOD COUNT 8.4 K/mm3 (4.0-10.0)
[2020-09-07 11:54] LABS: POTASSIUM 4.3 mmol/L (3.5-5.1)
[2020-09-07 11:57] LABS: ALBUMIN 4.2 g/dl (3.4-5.0); BLOOD UREA NITROGEN 20.2 mg/dL (7-18); CALCIUM 9.9 mg/dL (8.5-10.1)
[2020-09-07 12:02] LABS: BILIRUBIN,TOTAL 1.2 mg/dL (0.2-1); TOT PROT 7.5 g/dl (6.4-8.2)
[2020-09-07 18:02] VITALS: TEMP 97.7
[2020-09-07 18:14] VITALS: BP 144/64; PULSE 65
[2020-09-07] MEDS ORDERED: PORTA CATH FLUSH 10 ML IVPUSH ONE (18:14)
== END 2020-09-07 13:50 | disposition home or self-care (01) ==
LOC: JONCCHEMO 08:27
PROVIDERS: ATTEND Internal Medicine Hematology & Oncology
DX: Z51.11 Encounter for antineoplastic chemotherapy (principal); C50.912 Malignant neoplasm of unspecified site of left female breast
CPT/HCPCS: 36415; 80053; 85025; 96375; 96413

== ENCOUNTER 2020-09-28 07:17 | Day surgery (SDC) | payer OTHER ==
[2020-09-28] MEDS ORDERED: DIPHENHYDRAMINE 25 MG in SODIUM CHLORIDE 50 ML IVPB ONE (09:30)
[2020-09-28] MEDS ORDERED: ACETAMINOPHEN 325 MG TABLET (FP) PO ONE (09:30)
[2020-09-28 09:45] LABS: BASO % 0.6 % (0-2.0); HEMATOCRIT 35.5 % (32.4-45.2); HEMOGLOBIN 12.5 GM/dL (10.7-15.3); LYMPH % 15.5 % (8-40); MCHC 35.1 g/dl (32.0-36.0); MEAN CELL VOLUME 88.3 fl (80-96); MEAN PLT VOLUME 7.3 fl (7.5-11.1); MONO % 7.9 % (3.8-10.2); PLATELET COUNT 263 K/MM3 (134-434); RBC 4.02 M/mm3 (3.60-5.2); WHITE BLOOD COUNT 7.8 K/mm3 (4.0-10.0)
[2020-09-28] MEDS ORDERED: TRASTUZUMAB-ANNS 440 MG in SODIUM CHLORIDE 250 ML IVPB ONE (10:00)
[2020-09-28 10:06] LABS: POTASSIUM 3.7 mmol/L (3.5-5.1)
[2020-09-28 10:08] LABS: CALCIUM 10.2 mg/dL (8.5-10.1)
[2020-09-28 10:14] LABS: BILIRUBIN,TOTAL 0.5 mg/dL (0.2-1); TOT PROT 7.3 g/dl (6.4-8.2)
[2020-09-28 12:44] VITALS: BP 136/66; PULSE 62
[2020-09-28] MEDS ORDERED: PORTA CATH FLUSH 10 ML IVPUSH ONE (12:44)
[2020-09-28 12:51] VITALS: TEMP 97.9
== END 2020-09-28 12:15 | disposition home or self-care (01) ==
LOC: JONCCHEMO 07:17
PROVIDERS: ATTEND Internal Medicine Hematology & Oncology
DX: Z51.11 Encounter for antineoplastic chemotherapy (principal); C50.912 Malignant neoplasm of unspecified site of left female breast
CPT/HCPCS: 36415; 80053; 85025; 96375; 96413; Q5117

== ENCOUNTER → 2021-04-16 | Day surgery (SDC) | payer OTHER ==
[2021-04-16 09:30] LABS: BASO % 0.5 % (0-2.0); EOS % 2.4 % (0-4.5); HEMATOCRIT 35.7 % (32.4-45.2); HEMOGLOBIN 12.6 GM/dL (10.7-15.3); LYMPH % 14.9 % (8-40); MCH 30.6 pg (25.7-33.7); MCHC 35.2 g/dl (32.0-36.0); MEAN PLT VOLUME 7.5 fl (7.5-11.1); MONO % 8.1 % (3.8-10.2); NEUT % 74.1 % (42.8-82.8); PLATELET COUNT 280 10^3/uL (134-434); RDW 13.2 % (11.6-15.6); WHITE BLOOD COUNT 9.9 K/mm3 (4.0-10.0)
[2021-04-16 09:37] LABS: PROTHROMBIN TIME (PATIENT) 12.1 SEC (9.7-13.0)
== END | disposition home or self-care (01) ==
LOC: JRADIR 08:41
PROVIDERS: ATTEND Internal Medicine Hematology & Oncology
PROC: 0JPTXXZ Removal of Tunneled Vascular Access Device from Trunk Subcutaneous Tissue and Fascia, External Approach (ICD-10-PCS; principal; 2021-04-16)
DX: Z45.2 Encounter for adjustment and management of vascular access device (principal); C50.919 Malignant neoplasm of unspecified site of unspecified female breast
CPT/HCPCS: 36415; 36590; 85025; 85610

== ENCOUNTER 2023-03-02 16:27 | Emergency (ER) | payer OTHER ==
[2023-03-02 16:38] VITALS: BMI 27.3
[2023-03-02] MEDS ORDERED: ACETAMINOPHEN 1000 MG/100 ML BAG IVPB ONE (17:26)
[2023-03-02] MEDS ORDERED: FAMOTIDINE 20 MG/50 ML IVPB 20 MG/50 ML MG IVPB ONE ×2 (17:26→17:31)
[2023-03-02] MEDS ORDERED: MAG HYDROX/AL HYDROX/SIMETH 30 ML UNIT-DOSE CUP PO ONE (17:27)
[2023-03-02] MEDS ORDERED: SODIUM CHLORIDE 0.9% 500 ML INFUS.BAG IV ONE (17:27)
[2023-03-02] MEDS ORDERED: ACETAMINOPHEN INJECTION 100 ML IVPB ONE (17:31)
[2023-03-02] MEDS ORDERED: MAG HYDROX/AL HYDROX/SIMETH 30 ML UNIT-DOSE CUP ONE (17:31)
[2023-03-02 18:13] LABS: BASO % 0.5 % (0-2.0); EOS % 1.5 % (0-4.5); HEMATOCRIT 36.7 % (32.4-45.2); HEMOGLOBIN 12.7 GM/dL (10.7-15.3); LYMPH % 18.9 % (8-40); MCH 29.8 pg (25.7-33.7); MCHC 34.5 g/dl (32.0-36.0); MEAN CELL VOLUME 86.6 fl (80-96); MEAN PLT VOLUME 7.3 fl (7.5-11.1); MONO % 8.9 % (3.8-10.2); NEUT % 70.2 % (42.8-82.8); PLATELET COUNT 301 10^3/uL (134-434); RBC 4.24 M/mm3 (3.60-5.2); RDW 13.1 % (11.6-15.6); WHITE BLOOD COUNT 9.1 K/mm3 (4.0-10.0)
[2023-03-02 18:37] LABS: POTASSIUM 3.5 mmol/L (3.5-5.1)
[2023-03-02 18:39] LABS: CALCIUM 10.3 mg/dL (8.5-10.1)
[2023-03-02 18:40] LABS: BLOOD UREA NITROGEN 17.9 mg/dL (7-18)
[2023-03-02 18:43] LABS: CREATININE 0.9 mg/dL (0.55-1.3)
[2023-03-02 18:44] LABS: TOT PROT 7.6 g/dl (6.4-8.2)
[2023-03-02 18:45] LABS: BILIRUBIN,TOTAL 0.6 mg/dL (0.2-1)
[2023-03-02 20:31] VITALS: PULSE 67; RESP 18
[2023-03-02 21:28] VITALS: BP 148/78; TEMP 97.6
== END 2023-03-02 22:17 | disposition left against medical advice (07) ==
LOC: JER 16:27
PROC: 3E033GC Introduction of Other Therapeutic Substance into Peripheral Vein, Percutaneous Approach (ICD-10-PCS; principal; 2023-03-02)
PROC: 3E033NZ Introduction of Analgesics, Hypnotics, Sedatives into Peripheral Vein, Percutaneous Approach (ICD-10-PCS; 2023-03-02)
DX: R10.13 Epigastric pain (principal); R11.2 Nausea with vomiting, unspecified; R19.7 Diarrhea, unspecified
CPT/HCPCS: 36415; 71045-TC-FY; 80053; 83690; 84484; 85025; 93005; 93010; 99284-25